=== PATIENT | female | born 1975 | race African-American/Black ===

== ENCOUNTER 2017-08-24 06:08 | Inpatient (IN) | payer OTHER ==
[2017-08-23 12:06] VITALS: BMI 39.5
[2017-08-24] MEDS ORDERED: ROPIVACAINE HCL 0.5% 30ML VIAL ONE (07:26)
[2017-08-24] MEDS ORDERED: DEXAMETHASONE SOD PHOSPHATE/PF 10 MG/ML SDV ONE (07:26)
[2017-08-24] MEDS ORDERED: MIDAZOLAM HCL 2 MG/2 ML SINGLE DOSE VIAL ONE ×2 (07:27)
--- NOTE | 2017-08-24 07:57 | HP ---
History & Physical Update - History History: No Change - Physical Physical: No Change - Assessment Assessment: No Change - Plan Plan: No Change
[2017-08-24] MEDS ORDERED: ceFAZolin SODIUM 1 GM VIAL IVPB ONE (08:33)
[2017-08-24] MEDS ORDERED: BUPIVACAINE HCL/PF (5 MG/ML) 30 ML VIAL IJ ONE (09:00)
--- NOTE | 2017-08-24 10:04 | OP ---
Operative Note - Note: Operative Date: 08/24/17 Pre-Operative Diagnosis: Morbid obesity Operation: Laparoscopic vertical sleeve gastrectomy, wedge liver biopsy, EGD Post-Operative Diagnosis: Same as Pre-op Surgeon: Kodi Godoy (heri bueno) Anesthesia: General Specimens Removed: Greater curvature of stomach. Liver biopsy Estimated Blood Loss (mls): 30 Drains & Tubes with Location: 36 Fr Bougie Operative Report Dictated: Yes
--- NOTE | 2017-08-24 10:35 | SPEC ---
DATE OF OPERATION: 08/24/2017 SURGEON: Kodi Godoy MD SURVEY QUESTIONNAIRE DESIGNER: Noel Cameron PA-C PREOPERATIVE DIAGNOSES: 1. Morbid obesity. 2. Body mass index of 39.5. 3. Sleep apnea. 4. Depression. POSTOPERATIVE DIAGNOSES 1. Morbid obesity. 2. Body mass index of 39.5. 3. Sleep apnea. 4. Depression. 5. Hepatomegaly. PROCEDURES: 1. Laparoscopic vertical sleeve gastrectomy. 2. Laparoscopic wedge liver biopsy. 3. Esophagogastroduodenoscopy. SPECIMENS: 1. Greater curvature of the stomach. 2. Wedge liver biopsy. ESTIMATED BLOOD LOSS: 30 mL DRAINS: None. ANESTHESIA: GET. BOUGIE: Size 36-[place]. REASON FOR PROCEDURE: This is a 41-year-old female who presented for weight loss options. After describing different options, she decided to proceed with a laparoscopic, possible open vertical sleeve gastrectomy, possible liver biopsy, and upper endoscopy. RISKS AND BENEFITS: After describing the different options for weight loss management, the patient decided to proceed with a laparoscopic, possible open vertical sleeve gastrectomy. The patient was seen by the respective subspecialties and cleared for surgery. The risks and benefits of the procedure were explained. These included bleeding, infection, hernia, IA, DVT, PE, injury to surrounding structures including the liver, colon, bowel, spleen, esophagus, vessel injury, nerve injury, weight regain, gastric leak, staple line leak, sleeve leak, obstruction, vitamin deficiency, hair loss and as some of the possible complications. The patient understood and signed informed consent. DESCRIPTION OF PROCEDURE: The patient was placed supine on the operating room table. The patient underwent general endotracheal intubation. The arms were brought out at 90 degrees and secured. A footboard was placed and the legs were secured laterally with padding. The abdomen was prepped and draped in the usual sterile fashion. A timeout was performed. An incision was made in the left upper quadrant and a Veress needle inserted. Pneumoperitoneum was established. Subsequently, the Veress needle was removed and a 5-mm trocar was placed under direct visualization with the laparoscope. The laparoscopic camera was then inserted and inspection of the abdominal cavity was performed. An incision was then made in the supraumbilical area and a 15-mm trocar was placed under direct visualization. A 5-mm trocar was then placed in the right upper quadrant and a 5-mm trocar was placed below the left subcostal margin. A stab wound was made in the subxiphoid area and a Mirela clamp inserted and removed to dilate the tract. A Emili liver retractor was inserted. The post was secured at the bedside by the nursing staff. The patient was placed in steep reverse Trendelenburg position and the Emili liver retractor was used to secure the liver towards the anterior abdominal wall. The pylorus was identified and 6 cm proximal to it, the lesser sac was entered using the LigaSure device. All lateral attachments to the greater curvature of the stomach, including the short gastric vessels, were ligated using the LigaSure device toward the gastrosplenic and gastrophrenic ligaments. Once this was done in its entirety, it was confirmed that all tubes within the nasal or oropharyngeal cavity, including a temperature probe, was removed by Anesthesia. The bougie was then inserted by Anesthesia. Transection of the stomach was then begun staying adjacent to the bougie but away from the angularis. Transection of the stomach was performed near the portion of the stomach where the lesser sac was entered. Two laparoscopic Endo-PHILLIP black vitor were used at this location. Laparoscopic Endo PHILLIP purple staple loads were then used for the remainder of the transection until the greater curvature of the stomach was fully transected. This was done staying close to the bougie. Care was taken to stay away from the angle of His cephalad. The staple line was then inspected. Hemostasis was identified. A leak test was then performed. It was clamped distally to the staple line. Irrigation solution was placed in the left upper quadrant and air was insufflated by Anesthesia into the sleeve. No leaks were identified. No obstruction was identified. This was done through the entirety of the staple line. In addition, an upper endoscopy was performed. The endoscope was placed into the patients mouth and the entirety of the esophagus, GE junction, gastric pouch and staple line were inspected. No obstruction or leak was noted. The stomach was suctioned and the endoscope removed fully intact. At this point, the irrigation solution was suctioned and again, hemostasis was noted. A wedge liver biopsy was then performed. The left lobe of the liver was identified and a portion of the edge was grasped. Using electrocautery, a wedge of the liver was excised. This was removed and sent off the field as specimen. Hemostasis at the site of the wedge liver biopsy was attained using electrocautery. The 15-mm supraumbilical trocar was then removed and the greater curvature specimen removed from the site using a sponge stick franks. The specimen was inspected and a Veress needle inserted. The specimen insufflated adequately and no leak was identified. The staple line was noted to be intact. A Dhiraj-Mao device was then used to close the fascia with a 0 Vicryl suture at the site. Again, hemostasis was noted. The Emili liver retractor was then removed under direct visualization. Pneumoperitoneum was desufflated and the fascial sutures were secured. Hemostasis was noted at all incision sites and Marcaine was injected at all incision sites. All incision sites were closed using 4-0 Biosyn. Sterile dressings were applied. The patient tolerated the procedure well and was transferred to the recovery room in stable condition. The patient was transferred to telemetry for further monitoring. Neo [id number]
[2017-08-24] MEDS ORDERED: ACETAMINOPHEN 1000 MG/100 ML VIAL (NON FORMULARY) IVPB ONE (10:55)
[2017-08-24] MEDS ORDERED: FAMOTIDINE 20 MG/50 ML IVPB 20 MG/50 ML MG IVPB ONE (10:58)
[2017-08-24] MEDS ORDERED: ACETAMINOPHEN INJECTION 100 ML IVPB ONE (10:58)
[2017-08-24] MEDS ORDERED: ONDANSETRON 4 MG/2 ML VIAL IVPUSH ONE (11:15)
[2017-08-24] MEDS ORDERED: METOCLOPRAMIDE HCL INJECTION 10 MG/2 ML VIAL IVPUSH ONE (11:30)
[2017-08-24] MEDS ORDERED: FAMOTIDINE 20 MG PREMIXED IVPB IVPB ONE (11:45)
[2017-08-24 11:46] LABS: HEMATOCRIT 59.8 % (32.4-45.2); HEMOGLOBIN 19.3 GM/dL (10.7-15.3); MCH 30.4 pg (25.7-33.7); MCHC 32.3 g/dl (32.0-36.0); MEAN CELL VOLUME 94.2 fl (80-96); MEAN PLT VOLUME 9.8 fl (7.5-11.1); PLATELET COUNT 183 K/MM3 (134-434); RBC 6.34 M/mm3 (3.60-5.2); RDW 14.3 % (11.6-15.6); WHITE BLOOD COUNT 11.5 K/mm3 (4.0-10.0)
--- NOTE | 2017-08-24 11:47 | SURG ---
Surgery Creative Writer Note Creative Writer: Noel Cameron PA-C Date of Service: 08/24/17 Diagnosis: Morbid obesity due to excess calories Procedure: Laproscopic sleeve gastrectomy, liver biopsy, and EGD I was present for the entirety of the operative procedure. For further detail, please refer to operative report.
[2017-08-24 12:28] LABS: ALBUMIN 3.4 g/dl (3.4-5.0); ANION GAP 6 (8-16); BLOOD UREA NITROGEN 8 mg/dL (7-18); CALCIUM 8.6 mg/dL (8.5-10.1); CHLORIDE 108 mmol/L (98-107); CO2 27 mmol/L (21-32); GLUCOSE,RANDOM 124 mg/dL (74-106); POTASSIUM 4.2 mmol/L (3.5-5.1); SGOT/AST 30 U/L (15-37); SGPT/ALT 30 U/L (12-78); SODIUM 141 mmol/L (136-145)
[2017-08-24 12:30] LABS: ALK PHOS 91 U/L (45-117); BILIRUBIN,TOTAL 0.4 mg/dL (0.2-1.0); CREATININE 0.6 mg/dL (0.55-1.02); TOT PROT 7.5 g/dl (6.4-8.2)
[2017-08-24] MEDS: SODIUM CHLORIDE 1,000 ML IV SCH (13:45)
[2017-08-24] MEDS: ONDANSETRON 4 MG/2 ML VIAL IVPUSH SCH ×4 (14:10→22:16)
[2017-08-24] MEDS: morphine SULFATE 4 MG/ML VIAL IVPUSH PRN ×2 (14:40→22:16)
[2017-08-24] MEDS: METOCLOPRAMIDE HCL INJECTION 10 MG/2 ML VIAL IVPUSH SCH ×3 (15:25→22:16)
[2017-08-24] MEDS: ACETAMINOPHEN 1000 MG/100 ML VIAL (NON FORMULARY) IVPB SCH ×4 (15:25→23:42)
[2017-08-24] MEDS: FAMOTIDINE 20 MG/50 ML IVPB 20 MG/50 ML MG IVPB SCH (22:16)
[2017-08-24] MEDS: ENOXAPARIN NA (PORCINE) 40 MG/0.4 ML DISP.SYRIN SQ SCH (22:17)
[2017-08-25] MEDS: ONDANSETRON 4 MG/2 ML VIAL IVPUSH SCH ×4 (02:26→16:54)
[2017-08-25] MEDS: morphine SULFATE 4 MG/ML VIAL IVPUSH PRN ×3 (02:26→12:18)
[2017-08-25] MEDS: ACETAMINOPHEN 1000 MG/100 ML VIAL (NON FORMULARY) IVPB SCH (06:06)
[2017-08-25] MEDS: METOCLOPRAMIDE HCL INJECTION 10 MG/2 ML VIAL IVPUSH SCH ×3 (06:08→16:55)
[2017-08-25 06:54] LABS: HEMATOCRIT 52.1 % (32.4-45.2); HEMOGLOBIN 17.3 GM/dL (10.7-15.3); MCHC 33.2 g/dl (32.0-36.0); MEAN CELL VOLUME 93.1 fl (80-96); MEAN PLT VOLUME 9.9 fl (7.5-11.1); PLATELET COUNT 170 K/MM3 (134-434); RBC 5.59 M/mm3 (3.60-5.2); RDW 13.7 % (11.6-15.6); WHITE BLOOD COUNT 12.7 K/mm3 (4.0-10.0)
[2017-08-25 07:22] LABS: ALBUMIN 3.3 g/dl (3.4-5.0); ALK PHOS 82 U/L (45-117); ANION GAP 8 (8-16); BILIRUBIN,TOTAL 0.7 mg/dL (0.2-1.0); BLOOD UREA NITROGEN 6 mg/dL (7-18); CALCIUM 8.7 mg/dL (8.5-10.1); CHLORIDE 103 mmol/L (98-107); CO2 27 mmol/L (21-32); CREATININE 0.4 mg/dL (0.55-1.02); GLUCOSE,RANDOM 84 mg/dL (74-106); POTASSIUM 4.1 mmol/L (3.5-5.1); SGOT/AST 25 U/L (15-37); SGPT/ALT 27 U/L (12-78); SODIUM 138 mmol/L (136-145); TOT PROT 7.1 g/dl (6.4-8.2)
--- NOTE | 2017-08-25 07:56 | PN ---
Addendum entered and electronically signed by Sammy Bernal PA 08/25/17 09:32: UGI: no extravasation, leak or gastric outlet obstruction. BST1 diet ordered Original Note: Progress Note (short form) - Note Progress Note: POD #1 Alert. Doing well. No acute events since surgery per RN notes. OOB and ambulated a little. Voiding spontaneously. Denies n/v/f/c, CP, SOB, CONNELL. Last Vital Signs Temp Pulse Resp BP Pulse Ox 98.9 F 89 20 158/86 96 08/25/17 06:00 08/25/17 06:00 08/25/17 06:00 08/25/17 06:00 08/25/17 07:29 CBC, BMP 08/25/17 06:00 08/25/17 06:00 Gen: alert. nad Pulm: cta bilat Cor: rrr ABD: obese habitus. all surgical ports c/d/i/. No hematomas. LE: SCDs bilat. Soft. NT bilat <Sammy Bernal - Last Filed: 08/25/17 07:51> - Note Progress Note: Agree POD 1 Pain controlled AVSS Abd soft UGI no leak/obstruction Clears Discharge home <Kodi Godoy - Last Filed: 08/25/17 20:37> Problem List - Problems (1) Morbid (severe) obesity due to excess calories Assessment/Plan: POD #1 s/p Laparoscopic vertical sleeve gastrectomy, wedge liver biopsy, EGD Cont OOB and ambulate Incentive spirometer f/u UGI...if negative will begin bariatric POD #1 protocol --> and if tolerates diet can be dc'd today Code(s): E66.01 - MORBID (SEVERE) OBESITY DUE TO EXCESS CALORIES <Sammy Bernal - Last Filed: 08/25/17 07:51>
[2017-08-25] MEDS ORDERED: PT OWN MED DRAWER 7, Y5N ONE (09:11)
[2017-08-25] MEDS: SODIUM CHLORIDE 1,000 ML IV SCH (09:19)
[2017-08-25] MEDS: FAMOTIDINE 20 MG/50 ML IVPB 20 MG/50 ML MG IVPB SCH (09:19)
[2017-08-25] MEDS: ENOXAPARIN NA (PORCINE) 40 MG/0.4 ML DISP.SYRIN SQ SCH (09:19)
[2017-08-25] MEDS ORDERED: DULoxetine HCL 30 MG CAPSULE.DR (FP) PO SCH ×2 (10:00→22:00)
[2017-08-25] MEDS ORDERED: DULoxetine HCL 60 MG CAPSULE.DR PO SCH (10:00)
--- NOTE | 2017-08-25 14:44 | PATH ---
Surgical Pathology Report Patient Name: SOPHIA GATES [facility]. Rec. #: [id number] /Age/Gender: 1975 (Age: 41) / F Account: [id number] Location: 4 PEDS/ADOL Taken: 08/24/2017 Received: 08/24/2017 Reported: 08/25/2017 Physicians: Kodi Godoy M.D. Specimen(s) Received A: GREATER CURVATURE STOMACH B: LIVER BIOPSY Clinical History Morbid obesity Final Diagnosis A. STOMACH, GREATER CURVATURE, LAPAROSCOPIC VERTICAL SLEEVE GASTRECTOMY: PORTION OF STOMACH WITH MILD TO MODERATE CHRONIC GASTRITIS. IMMUNOHISTOCHEMICAL STAIN FOR H. PYLORI IS NEGATIVE. B. LIVER, BIOPSY: LIVER PARENCHYMA WITHOUT SIGNIFICANT STEATOSIS. MILD PATCHY CHOLESTASIS. NO INCREASE IN IRON AND FIBROSIS ON PERFORMED SPECIAL STAINS (IRON AND TRICHROME). Electronically Signed Ivette Javier M.D. Gross Description A. Received in formalin, labeled "greater curvature stomach," is a 141 gram, 18.5 x 4.0 x 3.7 cm. portion of stomach with a stapled margin of resection. The serosa is block-wren with minimal attached fat. The mucosa is block-pink with normal folds. No mucosal masses are identified. Pharm Spec sections are submitted in one cassette. B. Received in formalin labeled "liver biopsy," is a 2.0 x 1.8 x 1.0 cm block portion of soft tissue, consistent with a liver biopsy. Pharm Spec sections are submitted in one cassette. /08/24/2017 saudi/08/24/2017
[2017-08-25 14:57] VITALS: BP 136/93; PULSE 95; TEMP 99.3
[2017-08-25] MEDS ORDERED: MAGNESIUM OXIDE 250 MG PO SCH (22:00)
== END 2017-08-25 17:00 | disposition home or self-care (01) | DRG 621 ==
LOC: JSAMEDAYSX 06:08 → EDSTATUS 08:00 → J4S 14:17
PROVIDERS: ADMIT Surgery; ATTEND Surgery
PROC: 0DB64Z3 Excision of Stomach, Percutaneous Endoscopic Approach, Vertical (ICD-10-PCS; principal; 2017-08-24 08:00)
PROC: 0FB24ZX Excision of Left Lobe Liver, Percutaneous Endoscopic Approach, Diagnostic (ICD-10-PCS; 2017-08-24 08:00)
PROC: 0DJ08ZZ Inspection of Upper Intestinal Tract, Via Natural or Artificial Opening Endoscopic (ICD-10-PCS; 2017-08-24 08:00)
DX: E66.01 Morbid (severe) obesity due to excess calories (principal); Z68.39 Body mass index [BMI] 39.0-39.9, adult; R16.0 Hepatomegaly, not elsewhere classified; G47.30 Sleep apnea, unspecified; F32.9 Major depressive disorder, single episode, unspecified
CPT/HCPCS: 36415; 74241-TC-FY; 80053; 84703; 85027; 86850; 86900; 86901; 88307-TC; 94010; 94660; 94760; J0131; J7030